=== PATIENT | female | born 1975 | race Caucasian/White ===

== ENCOUNTER 2018-10-01 12:35 | Emergency (ER) | payer MEDICAID ==
[~2018-10-01] VITALS: Ht 157.5 cm; Wt 68.0 kg
[2018-10-01 12:52] VITALS: BP_SYST 116
[2018-10-01] MEDS ORDERED: chlorproMAZINE HCL 50 MG/ 2 ML AMP IV ONE (13:30)
[2018-10-01] MEDS ORDERED: DIPHENHYDRAMINE INJ 50 MG/ML VIAL IVP ONE ×2 (13:30→15:00)
[2018-10-01] MEDS ORDERED: NACL 0.9% 1,000 ML IV ONE (13:30)
[2018-10-01 15:15] VITALS: BP_SYST 116
== END 2018-10-01 15:15 | disposition home or self-care (01) ==
LOC: SED 12:35
DX: R51 Headache (principal)
CPT/HCPCS: 81002; 96374; 96375; 99283; J1200; J3230; J7030